=== PATIENT | female | born 1985 | race Caucasian/White ===

== ENCOUNTER 2016-05-25 11:11 | Emergency (ER) | payer OTHER ==
--- NOTE | ~2016-05-25 | CR127 ---
[facility] A Service of [facility] RADIOLOGY TEXT RESULTS PATIENT: HARISH HOBBS LOCATION: [facility] : 81 UNIT #: [id number] AGE: [address]: Suyapa Carlin SEX: F ORDER DR: [id number] [facility] [address] [place], [place] [address] [id number] E MR#: [id number] Acc #: [id number] NAME: HARISH HOBBS : 1985 SEX: F STUDY DATE/TIME: 05/25/2016 10:43 UNIT: [facility] ROOM: STUDY DESCRIPTION: CR Foot Complete Min 3 View Rt Attending Physician: Suyapa Carlin P.A.-C. Ordering Physician: Suyapa Carlin P.A.-C. [facility] MEDICAL IMAGING REPORT This report is preliminary unless electronic signature is present EXAM Right foot 3 views INDICATIONS Tripped and twisted foot; foot pain for 2 days. COMPARISON No comparisons. FINDINGS There is mild calcaneal spurring. No fracture or dislocation. IMPRESSION Mild calcaneal spurring. Otherwise unremarkable. Dictated by... Walter Bo M.D. THIS IS AN ELECTRONICALLY VERIFIED REPORT Walter Bo M.D. at 05/26/2016 7:53 AM REY/skye TD: 05/25/2016 12:15 JOB #: [id number] MEDICAL IMAGING REPORT Page 1 of 1 COPY
[~2016-05-25 11:11] MED LIST: ACETAMINOPHEN PO; ALPRAZOLAM PO; ANTIVERT; ANTIVERT PO; ASCORBIC ACID500 MG; ASPIRIN; ATIVAN; CERTAGEN PO; CIPRO250 MG PO; DEPO-PROVER150 MG/ML; DEPO-PROVER150 MG/ML IM; DICLOFENAC PO; EC-NAPROSYN500 MG PO; FLEXERIL PO; FLEXERIL10 M1 PO; FLEXERIL10 MG PO; IBUPROFEN PO; LABETALOL HCL100 MG PO; LOPRESSOR PO; MEDROL; MEDROL4 MG/DOSE- PO; MOBIC PO; NEXIUM PO; NICOTINE T1 PATCH .2 TOP; NORCO 5/325 TAB1 TAB PO; ORUDIS75 M1 PO; PRILOSEC PO; SUDAFED; ULTRAM PO; VICODIN 5/1 TAB 5/50 PO; VICODIN 5/500 T1 TAB; VITAMIN C PO; VITAMIN C500 M1 PO; ZITHROMAX PO; [UNRECOGNIZED DRUG - REMARK]; [UNRECOGNIZED DRUG - REMARK]
== END 2016-05-25 11:47 | disposition home or self-care (01) ==
LOC: CFTX 11:11
DX: S93.612A Sprain of tarsal ligament of left foot, initial encounter (principal); K21.9 Gastro-esophageal reflux disease without esophagitis; F17.210 Nicotine dependence, cigarettes, uncomplicated; Z88.1 Allergy status to other antibiotic agents; Z88.0 Allergy status to penicillin; W20.8XXA Other cause of strike by thrown, projected or falling object, initial encounter; Y92.009 Unspecified place in unspecified non-institutional (private) residence as the place of occurrence of the external cause
CPT/HCPCS: 29515; 73630; 99283

== ENCOUNTER 2016-07-19 03:39 | Emergency (ER) | payer OTHER ==
--- NOTE | ~2016-07-19 | EKG ---
PATIENT: [facility] UNIT #: [id number] Ventricular Rate: 118 BPM Atrial Rate: 118 BPM P-R Interval: 138 ms QRS Duration: 74 ms Q-T Interval: 336 ms QTC Calculation(Bezet): 470 ms P [place]: 78 degrees Calculated R [place]: 64 degrees Calculated T [place]: 31 degrees Diagnosis Line: Sinus tachycardia Diagnosis Line: Possible Left atrial enlargement Diagnosis Line: Borderline ECG Diagnosis Line: When compared with ECG of 23-AUG-2014 15:46, Diagnosis Line: No significant change was found Diagnosis Line: Confirmed by JUSTINA SHEPARD MD ([id number]) on Diagnosis Line: 07/19/2016 9:16:45 PM INTERPRETING MD: BRENNAN
--- NOTE | ~2016-07-19 | CR72 ---
[facility] A Service of [facility] RADIOLOGY TEXT RESULTS PATIENT: HARISH HOBBS LOCATION: [facility] : 83 UNIT #: [id number] AGE: [address]: Nidia Sparrow APRN STEREOTYPER APPRENTICE SEX: F ORDER DR: [id number] [facility] [address] [place], [place] [address] [id number] E MR#: [id number] Acc #: [id number] NAME: HARISH HOBBS : 1985 SEX: F STUDY DATE/TIME: 07/19/2016 5:23 UNIT: [facility] ROOM: STUDY DESCRIPTION: CR Chest Single View Portable Attending Physician: Nidia Sparrow A.P.R.N. Ordering Physician: Nidia Sparrow A.P.R.N. [facility] MEDICAL IMAGING REPORT This report is preliminary unless electronic signature is present EXAM Portable chest, 07/19. HISTORY Chest pain starting today. COMPARISON 08/23/2014 FINDINGS A portable view of the chest was obtained. The heart size and vascularity are normal and the lungs are clear. The bones are unremarkable. IMPRESSION No active disease. Dictated by... Kurt Mast M.D. THIS IS AN ELECTRONICALLY VERIFIED REPORT Kurt Mast M.D. at 07/19/2016 1:22 PM TL/yony TD: 07/19/2016 10:41 JOB #: [id number] MEDICAL IMAGING REPORT Page 1 of 1 COPY
[2016-07-19 04:54] LABS: POC - TROPONIN <0.05 ng/mL (<=0.05)
[2016-07-19 05:25] LABS: BASOPHIL% 0.5 % (0-2.5); EOSINOPHIL# 0.1 X10e3 (0-0.7); EOSINOPHIL% 0.9 % (0.0-7.0); HEMATOCRIT 39.7 % (35.0-45.0); HEMOGLOBIN 12.6 gm/dL (12.0-16.0); LYMPHOCYTE# 2.6 X10e3 (1.0-3.5); LYMPHOCYTE% 35.2 % (17.0-45.0); MEAN CELL VOLUME 87.6 FL (83-96); MEAN CORPUSCULAR HEMOGLOBIN 27.9 PG (28-34); MEAN CORPUSCULAR HGB CONC 31.8 g/dL (30-36); MEAN PLATELET VOLUME 8.9 FL (6.5-11.5); MONOCYTE# 0.4 X10e3 (0-1.0); NEUTROPHIL# 4.2 X10e3 (1.5-7.1); NEUTROPHIL% 57.4 % (40-75); PLATELET COUNT 212 X10e3 (140-420); RED BLOOD COUNT 4.53 X10e (3.90-5.30); RED CELL DISTRIBUTION WIDTH 20.3 % (11.0-15.5); WHITE BLOOD COUNT 7.4 X10e3 (4.0-10.5)
[2016-07-19 05:30] LABS: DIFF IND NO
[2016-07-19 05:56] LABS: PROTHROMBIN TIME (PATIENT) 10.3 SECONDS (9.6-11.5)
[2016-07-19 06:59] LABS: ALBUMIN SERUM 4.1 g/dL (3.5-5.0); BILIRUBIN,TOTAL 0.7 mg/dL (0.2-2.0); BUN/CREATININE RATIO 18.75; CALCIUM SERUM 9.1 mg/dL (8.4-10.2); CREATININE SERUM 0.8 mg/dL (0.6-1.4); POTASSIUM 3.1 mmol/L (3.5-5.1); PROTEIN TOTAL SERUM 7.3 g/dL (6.0-8.3)
[2016-07-19 07:18] LABS: %MB 1.1 % (0.0-4.0); MB 2.1 ng/ml
[2016-07-19 07:23] LABS: %MB 1.1 % (0.0-4.0); MB 2.2 ng/ml
== END 2016-07-19 07:29 | disposition home or self-care (01) ==
LOC: CED 03:39
PROVIDERS: Nurse Practitioner
DX: R07.89 Other chest pain (principal); E87.6 Hypokalemia; K21.9 Gastro-esophageal reflux disease without esophagitis; E03.9 Hypothyroidism, unspecified; F17.200 Nicotine dependence, unspecified, uncomplicated; J45.909 Unspecified asthma, uncomplicated; F41.9 Anxiety disorder, unspecified; Z98.890 Other specified postprocedural states; Z88.0 Allergy status to penicillin; Z88.1 Allergy status to other antibiotic agents
CPT/HCPCS: 71010; 80053; 82550; 82553; 84443; 84484; 84703; 85025; 85379; 85610; 93005; 96374; 96375; 99285; J1885; J2060

== ENCOUNTER 2016-09-18 11:12 | Emergency (ER) | payer OTHER ==
[~2016-09-18] VITALS: Ht 165.1 cm; Wt 83.9 kg
--- NOTE | ~2016-09-18 | CR126 ---
[facility] A Service [facility] RADIOLOGY TEXT RESULTS PATIENT: HARISH HOBBS LOCATION: [facility] : 83 UNIT #: [id number] AGE: [address]: Suyapa Carlin SEX: F ORDER DR: [id number] [facility] [address] [place], [place] [address] [id number] E MR#: [id number] Acc #: [id number] NAME: HARISH HOBBS. : 1985 SEX: F STUDY DATE/TIME: 09/18/2016 11:34 UNIT: [facility] ROOM: STUDY DESCRIPTION: CR Foot Complete Min 3 View Lt Attending Physician: Suyapa Carlin P.A.-C. Ordering Physician: Suyapa Carlin P.A.-C. Primary Care Physician: [facility] IMAGING REPORT This report is preliminary unless electronic signature is present EXAM Left foot 3 views HISTORY Patient fell last night. Tripped and twisted left foot going down the stairs and heard a pop with pain and swelling currently. COMMENT 3 views left foot are reviewed. See the ankle dictation. There is a small ossific density seen lateral to the calcaneus on one of the views which is probably a small avulsion-type fracture, possibly associated with the calcaneofibular ligament. There is associated lateral soft tissue swelling. IMPRESSION There is lateral soft tissue swelling and there is a small linear ossific density lateral to the calcaneus inferior to the lateral malleolus which could be a small avulsion-type fracture associated with the calcaneofibular ligament. Dictated by... Layla Gomez M.D. THIS IS AN ELECTRONICALLY VERIFIED REPORT Layla Gomez M.D. at 09/19/2016 4:52 PM LUIS A/amisha TD: 09/19/2016 02:06 JOB #: [id number] [facility] A Service [facility] RADIOLOGY TEXT RESULTS PATIENT: HARISH HOBBS LOCATION: [facility] : 81 UNIT #: [id number] AGE: [address]: Suyapa Carlin SEX: F ORDER DR: MEDICAL IMAGING REPORT Page 1 of 1 COPY
--- NOTE | ~2016-09-18 | CR20 ---
[facility] A Service [facility] RADIOLOGY TEXT RESULTS PATIENT: HARISH HOBBS LOCATION: [facility] : 83 UNIT #: [id number] AGE: [address]: Suyapa Carlin SEX: F ORDER DR: [id number] [facility] [address] [place], [place] [address] [id number] E MR#: [id number] Acc #: [id number] NAME: HARISH HOBBS. : 1985 SEX: F STUDY DATE/TIME: 09/18/2016 11:32 UNIT: [facility] ROOM: STUDY DESCRIPTION: CR Ankle Min 3 Views Lt Attending Physician: Suyapa Carlin P.A.-C. Ordering Physician: Suyapa Carlin P.A.-C. Primary Care Physician: [facility] IMAGING REPORT This report is preliminary unless electronic signature is present EXAM Left ankle HISTORY Left ankle, left foot pain, swelling, felt and heard a pop at 11 o'clock last night and she tripped and twisted her foot going down the stairs. COMMENT 3 views left ankle are reviewed. No prior. There is lateral soft tissue swelling and there is subtle irregularity of the distal aspect of lateral malleolus which is concerning for a small avulsion-type injury. Tiny ossific densities are also seen medial to the lateral malleolus which could be tiny avulsion fractures. There is no dislocation appreciated. No additional fracture is suspected. IMPRESSION Suspect tiny avulsion-type fractures associated with the distal end of the lateral malleolus with associated soft tissue swelling. The ankle mortise is still anatomic. Dictated by... Layla Gomez M.D. THIS IS AN ELECTRONICALLY VERIFIED REPORT Layla Gomez M.D. at 09/19/2016 4:52 PM LUIS A/amisha TD: 09/19/2016 01:57 JOB #: [id number] [facility] A Service [facility] RADIOLOGY TEXT RESULTS PATIENT: HARISH HOBBS LOCATION: [facility] : 81 UNIT #: [id number] AGE: [address]: Suyapa Carlin SEX: F ORDER DR: MEDICAL IMAGING REPORT Page 1 of 1 COPY
== END 2016-09-18 12:40 | disposition home or self-care (01) ==
LOC: CFTX 11:12 → CED 11:12 → CFTX 11:52
DX: S82.62XA Displaced fracture of lateral malleolus of left fibula, initial encounter for closed fracture (principal); F41.9 Anxiety disorder, unspecified; E03.9 Hypothyroidism, unspecified; F17.210 Nicotine dependence, cigarettes, uncomplicated; Z88.0 Allergy status to penicillin; K21.9 Gastro-esophageal reflux disease without esophagitis; I10 Essential (primary) hypertension; X50.1XXA Overexertion from prolonged static or awkward postures, initial encounter; Y92.89 Other specified places as the place of occurrence of the external cause
CPT/HCPCS: 29540; 73610; 73630; 99283